=== PATIENT | male | born 1945 | race Hispanic/Latino ===

== ENCOUNTER 2020-08-08 19:34 | Inpatient (IN) | payer MEDICARE, OTHER ==
[~2020-08-08] VITALS: Ht 165.1 cm; Wt 57.4 kg
[2020-08-08 20:18] LABS: APPEARANCE,URINE SL CLOUDY (CLEAR); BILIRUBIN,URINE NEGATIVE (NEGATIVE); COLOR,URINE ORANGE (YELLOW); GLUCOSE, URINE (UA) NEGATIVE (NEGATIVE); KETONES,URINE NEGATIVE (NEGATIVE); LEUKOCYTE ESTERASE ,URINE NEGATIVE (NEGATIVE); NITRATE,URINE NEGATIVE (NEGATIVE); OCCULT BLOOD,URINE LARGE (NEGATIVE); PROTEIN,URINE 100 mg/dL (NEGATIVE); UROBILINOGEN,URINE 0.2 mg/dL (0.2-1.0)
[2020-08-08 20:24] LABS: BACTERIA,URINE Rare /HPF (None Seen); WBC,URINE 0-1 /HPF (0-1)
[2020-08-08 20:25] LABS: RBC,URINE 51-100 /HPF (0-1); SQUAMOUS EPITHELIAL CELL,UR Rare /HPF (0-2)
[2020-08-08 20:57] LABS: BASOPHILS % (AUTO) 0.3 % (0.0-5.0); EOSINOPHILS % (AUTO) 0.6 % (0.0-8.0); LYMPHOCYTES % (AUTO) 10.5 % (21.0-51.0); MEAN CORPUSCULAR HEMOGLOBIN 24.8 pg (27.0-33.0); MEAN CORPUSCULAR HGB CONC 30.5 g/dL (32.0-36.0); MEAN CORPUSCULAR VOLUME 81.3 fL (79-99); NEUTROPHILS % (AUTO) 82.3 % (40.0-77.0); PLATELET COUNT (AUTO) 188 K/uL (130-400); RED BLOOD CELL COUNT(AUTO) 2.46 MIL/uL (4.50-6.20); RED CELL DISTRIBUTION WIDTH 14.4 % (11.0-15.5); WHITE BLOOD COUNT (AUTO) 3.2 K/uL (4.8-10.8)
[2020-08-08 21:12] LABS: CREATININE 0.9 mg/dL (0.5-1.5); POTASSIUM 3.7 mmol/L (3.5-5.1)
[2020-08-08 21:16] LABS: INR 1.03 (0.85-1.15); PARTIAL THROMBOPLASTIN TIME 25.1 SEC (26.3-35.5); PROTHROMBIN TIME 10.7 SEC (9.6-11.6)
[2020-08-08 21:17] LABS: ALBUMIN 3.5 g/dL (3.5-5.0); BILIRUBIN,TOTAL 0.2 mg/dL (0.2-1.0); TOTAL PROTEIN, SERUM 6.9 g/dL (6.0-8.3)
[2020-08-08] MEDS ORDERED: 0.9%NACL 1000ML 1,000 ML IV SCH (23:00)
[2020-08-08] MEDS ORDERED: MORPHINE 2 MG SYG IV PRN (23:00)
[2020-08-08] MEDS ORDERED: ACETAMINOPHEN 325 MG TAB PO PRN ×2 (23:00)
[2020-08-08] MEDS ORDERED: ONDANSETRON 4MG INJ IV PRN (23:00)
[2020-08-08] MEDS ORDERED: PANTOPRAZOLE 40 MG/VIAL ONE (23:24)
[2020-08-08] MEDS ORDERED: 0.9%NACL 100ML 100 ML IV ONE (23:25)
[2020-08-09] VITALS (10 sets, daily range): BP systolic 145–177; BP diastolic 63–77
[2020-08-09] MEDS: PANTOPRAZOLE 40MG INJ 80 MG in 0.9%NACL 100ML 100 ML IV SCH ×3 (01:00→21:35)
[2020-08-09 05:34] LABS: BASOPHILS % (AUTO) 0.3 % (0.0-5.0); EOSINOPHILS % (AUTO) 1.6 % (0.0-8.0); HEMATOCRIT 22.4 % (42-54); LYMPHOCYTES % (AUTO) 14.8 % (21.0-51.0); MEAN CORPUSCULAR HGB CONC 30.8 g/dL (32.0-36.0); MEAN CORPUSCULAR VOLUME 81.2 fL (79-99); MONOCYTES % (AUTO) 8.3 % (3.0-13.0); NEUTROPHILS % (AUTO) 74.7 % (40.0-77.0); PLATELET COUNT (AUTO) 187 K/uL (130-400); RED BLOOD CELL COUNT(AUTO) 2.76 MIL/uL (4.50-6.20); RED CELL DISTRIBUTION WIDTH 13.9 % (11.0-15.5); WHITE BLOOD COUNT (AUTO) 3.7 K/uL (4.8-10.8)
[2020-08-09 05:40] LABS: RETICULOCYTE % (AUTO) 3.07 % (0.42-2.23)
[2020-08-09 06:20] LABS: CREATININE 0.8 mg/dL (0.5-1.5); POTASSIUM 3.4 mmol/L (3.5-5.1)
[2020-08-09 06:42] LABS: % IRON SATURATION 10.3 % (30-44)
[2020-08-09] MEDS ORDERED: CAPT25TA3 PO (11:06)
[2020-08-09] MEDS ORDERED: [UNRECOGNIZED DRUG - OTHER] PO (11:07)
[2020-08-09] MEDS ORDERED: DIATR MEGLU/DIATRIZOATE SODIUM 30 ML BOTTLE ONE (11:19)
[2020-08-09] MEDS ORDERED: COMPOUND IV REFRIGERATED 1 EACH IVSOLN MISC PRN (11:45)
[2020-08-09 13:33] LABS: HEMATOCRIT 26.4 % (42-54)
[2020-08-09] MEDS ORDERED: IOHEXOL 350 MG/ML 100ML INFUS..BTL IV ONE (14:51)
[2020-08-09 20:54] LABS: HEMATOCRIT 27.3 % (42-54)
[2020-08-10] VITALS (19 sets, daily range): BP systolic 123–168; BP diastolic 60–77
[2020-08-10] MEDS: PANTOPRAZOLE 40MG INJ 80 MG in 0.9%NACL 100ML 100 ML IV SCH ×2 (07:11→21:09)
[2020-08-10 08:57] LABS: HEMATOCRIT 27.5 % (42-54)
[2020-08-10] MEDS ORDERED: MIDAZOLAM HCL 1 MG/ML 2ML VIAL ONE (11:42)
[2020-08-10] MEDS ORDERED: FENTANYL CITRATE PF 50 MCG/1 ML 2ML VIAL ONE (11:42)
[2020-08-10 13:24] LABS: HEMATOCRIT 24.6 % (42-54)
[2020-08-10] MEDS ORDERED: LACTULOSE 20 GM/30 ML UDCUP PO SCH (14:30)
[2020-08-10] MEDS ORDERED: PEG 3350/NA SULF,BICARB,CL/KCL 4000 ML SOLN PO SCH ×2 (15:00→16:00)
[2020-08-10] MEDS ORDERED: LACTULOSE 20 GM/30 ML UDCUP PO ONE (17:25)
[2020-08-10 20:44] LABS: HEMATOCRIT 30.4 % (42-54)
[2020-08-11] VITALS (24 sets, daily range): BP systolic 140–185; BP diastolic 54–84
[2020-08-11] MEDS: PANTOPRAZOLE 40MG INJ 80 MG in 0.9%NACL 100ML 100 ML IV SCH ×2 (03:00→09:56)
[2020-08-11 05:37] LABS: HEMATOCRIT 25.3 % (42-54)
[2020-08-11] MEDS: PANTOPRAZOLE 40 MG TAB DR PO SCH (07:30)
[2020-08-11] MEDS ORDERED: LIDOCAINE HCL-MPF 2% 5ML VIAL ONE (11:44)
[2020-08-11] MEDS ORDERED: PROPOFOL 10 MG/ML 20ML VIAL IV ONE (11:44)
[2020-08-11] MEDS ORDERED: MESALAMINE 1000 MG SUPP PR SCH (21:00)
[2020-08-12 00:16] VITALS: BP 157/72
[2020-08-12 04:20] VITALS: BP 132/53
[2020-08-12 05:18] LABS: BASOPHILS % (AUTO) 0.3 % (0.0-5.0); EOSINOPHILS % (AUTO) 0.9 % (0.0-8.0); HEMATOCRIT 25.5 % (42-54); LYMPHOCYTES % (AUTO) 16.5 % (21.0-51.0); MEAN CORPUSCULAR HEMOGLOBIN 24.1 pg (27.0-33.0); MEAN CORPUSCULAR HGB CONC 30.6 g/dL (32.0-36.0); MEAN CORPUSCULAR VOLUME 78.7 fL (79-99); MONOCYTES % (AUTO) 9.7 % (3.0-13.0); NEUTROPHILS % (AUTO) 72.3 % (40.0-77.0); PLATELET COUNT (AUTO) 200 K/uL (130-400); RED BLOOD CELL COUNT(AUTO) 3.24 MIL/uL (4.50-6.20); RED CELL DISTRIBUTION WIDTH 13.7 % (11.0-15.5); WHITE BLOOD COUNT (AUTO) 3.4 K/uL (4.8-10.8)
[2020-08-12 05:34] LABS: CREATININE 0.8 mg/dL (0.5-1.5); POTASSIUM 3.1 mmol/L (3.5-5.1)
[2020-08-12] MEDS: PANTOPRAZOLE 40 MG TAB DR PO SCH ×2 (07:29→07:55)
[2020-08-12 08:52] VITALS: BP 150/62
[2020-08-12] MEDS ORDERED: MESA1S PR (11:21)
[2020-08-12] MEDS ORDERED: PANT40TA PO (11:21)
[2020-08-12] MEDS ORDERED: FERS325 PO (11:24)
[2020-08-12] MEDS ORDERED: KCL 20 MEQ ERTAB PO SCH ×3 (11:30→15:30)
[2020-08-12 12:00] VITALS: BP 129/59
[2020-08-12 17:12] VITALS: BP 142/70
== END 2020-08-12 18:45 | disposition home or self-care (01) | DRG 241 ==
LOC: EDH 19:34 → EDHIP 22:00 → 3CH 23:53
PROVIDERS: ADMIT Internal Medicine; ATTEND Internal Medicine
PROC: 30233N1 Transfusion of Nonautologous Red Blood Cells into Peripheral Vein, Percutaneous Approach (ICD-10-PCS; principal; 2020-08-09)
PROC: 0DB98ZX Excision of Duodenum, Via Natural or Artificial Opening Endoscopic, Diagnostic (ICD-10-PCS; 2020-08-10)
PROC: 0DB68ZX Excision of Stomach, Via Natural or Artificial Opening Endoscopic, Diagnostic (ICD-10-PCS; 2020-08-10)
PROC: 0DB38ZX Excision of Lower Esophagus, Via Natural or Artificial Opening Endoscopic, Diagnostic (ICD-10-PCS; 2020-08-10)
PROC: 0DBP8ZX Excision of Rectum, Via Natural or Artificial Opening Endoscopic, Diagnostic (ICD-10-PCS; 2020-08-11)
PROC: 0DBE8ZX Excision of Large Intestine, Via Natural or Artificial Opening Endoscopic, Diagnostic (ICD-10-PCS; 2020-08-11)
PROC: 0D5P8ZZ Destruction of Rectum, Via Natural or Artificial Opening Endoscopic (ICD-10-PCS; 2020-08-11)
DX: K29.01 Acute gastritis with bleeding (principal); K92.1 Melena; R31.0 Gross hematuria; D62 Acute posthemorrhagic anemia; K62.7 Radiation proctitis; K21.00 Gastro-esophageal reflux disease with esophagitis, without bleeding; N40.1 Benign prostatic hyperplasia with lower urinary tract symptoms; R31.9 Hematuria, unspecified; I10 Essential (primary) hypertension; R33.9 Retention of urine, unspecified; Z85.46 Personal history of malignant neoplasm of prostate; Z92.3 Personal history of irradiation; K64.8 Other hemorrhoids; Z82.49 Family history of ischemic heart disease and other diseases of the circulatory system; Z83.3 Family history of diabetes mellitus; Z90.79 Acquired absence of other genital organ(s); R73.9 Hyperglycemia, unspecified; Z20.822 Contact with and (suspected) exposure to COVID-19
CPT/HCPCS: 36415; 36430; 43239; 45388; 71045; 74178; 76770; 80048; 80053; 81001; 82270; 82607; 82728; 83540; 84132; 85014; 85018; 85025; 85610; 85730; 86850; 86900; 86901; 86923; 87088; 87426; 88305; 88342; 93005; A4606; C9113; G0378; J2250; J2704; J3010; J3490; P9016; Q9963; Q9967; U0003

== ENCOUNTER 2020-08-19 12:13 | Emergency (ER) | payer OTHER ==
[~2020-08-19 12:13] MED LIST: CAPT25TA3 PO; FERS325 PO; MESA1S PR; PANT40TA PO; [UNRECOGNIZED DRUG - OTHER] PO
== END 2020-08-19 13:56 | disposition home or self-care (01) ==
LOC: EDH 12:13
DX: R33.9 Retention of urine, unspecified (principal); I10 Essential (primary) hypertension